=== PATIENT | male | born 1980 | race Two or more races ===

== ENCOUNTER 2019-01-22 07:05 | Outpatient (CLI) | payer OTHER | END 2019-01-22 15:00 | disposition home or self-care (01) | LOC: LAB 07:05 | DX: D69.49 Other primary thrombocytopenia (principal); D50.8 Other iron deficiency anemias; D51.3 Other dietary vitamin B12 deficiency anemia; D55.0 Anemia due to glucose-6-phosphate dehydrogenase [G6PD] deficiency; D51.1 Vitamin B12 deficiency anemia due to selective vitamin B12 malabsorption with proteinuria; D51.0 Vitamin B12 deficiency anemia due to intrinsic factor deficiency; E03.8 Other specified hypothyroidism; E06.3 Autoimmune thyroiditis ==